=== PATIENT | male | born 2000 ===

== ENCOUNTER 2024-11-28 20:37 | Emergency (ER) | payer SELFPAY ==
[2024-11-28] VITALS (7 sets, daily range): BP systolic 143–171; BP diastolic 80–107; PULSE 81–100; RESP 16–18; TEMP 36.7–36.9; O2SAT 92–996; BMI 35.4
--- NOTE | 2024-11-28 21:12 | EDNOTE_ITS ---
ED General RME/HPI General Chief complaint: Syncope / Near Syncope Stated complaint: ANXIETY Time Seen by Provider: 11/28/24 21:04 Arrival date/time: 11/28/24 20:37 CC: Passed out . Patient presents to the ER via EMS with police escort in shackles coming from the intermediate where he was sitting on the lower bunk states he has had a bad day that was stressful . Patient is dramatic rolling his eyes and states that he does not recall the event denies any street drugs or alcohol. Vital signs are stable. The patient is refusing urine and blood testing. He is awake alert and oriented. Related Data Allergies Allergy/AdvReac Type Severity Reaction Status Date / Time No Known Allergies Allergy Verified 11/28/24 21:11 Review of Systems Review of Systems Narrative Review of Systems: GEN: No fever, no chills, no weight loss EYES: No discharge, no visual changes, no pain HEENT: No ear pain, no congestion, no sore throat PULM: No shortness of breath, no cough, no congestion CV: No chest pain, no dyspnea on exertion, no palpitations GI: No nausea, no vomiting, no diarrhea, no pain, no constipation : No frequency, no urgency, no dysuria MUSC/SKEL: No joint pain, no back pain SKIN: No rash PSYCH: No hallucinations, no depression HEME/LYMPH: No easy bleeding or bruising tendencies NEURO: No weakness, no headache ED Exam Narrative Physical exam: [General: Not in any acute distress, dramatic Head normocephalic HEENT: Pupils are PERRLA EOMs are intact mouth pink dry membranes uvula is midline swallow symmetrical phonation is normal within acceptable limits Neck is supple nontender Chest equal chest rise nontender to palpation Respiratory: Clear to auscultation no wheezes crackles or rubs CV: Rate rhythm is regular no murmurs rubs or clicks Abdomen is distended secondary to body habitus soft nontender no masses positive bowel sounds all 4 quadrants Back: No CVA tenderness no spinous process tenderness from cervical spine thoracic and lumbar spine Skin: Intact no petechiae rash induration ulceration or crepitus Extremities: Moving all extremity against resistance cap refill less than 2 seconds neurosensory intact Neuro: Awake alert oriented x3 Glascow coma 15 no focal deficits] Course Quality Measures none Orders Category Date Time Status Orthostatic Vitals NOW Care 11/28/24 21:11 Active Vital Signs Vital signs: Vital Signs Temperature 98.4 F 11/28/24 20:42 Pulse Rate 100 11/28/24 20:42 Respiratory Rate 17 11/28/24 20:42 Blood Pressure 151/92 H 11/28/24 20:42 Pulse Oximetry (%) 92 L 11/28/24 20:42 Oxygen Delivery Method Room Air 11/28/24 20:42 Discharge Plan Plan Patient Disposition: HOME (Self Care) Patient condition on transfer: Stable Problem List Clinical Impression: Syncope, Medical clearance for incarceration Patient/Caregiver Discharge Instructions Print Language: Belgian Stand Alone Forms: [employer] Award Info., Patient Portal Info Letter PA/DYLON Supervising Physician PA/DYLON Supervising Physician: Trevon Call ENP [facility] Clinical Information Provided by EMS and law enforcement Medical Records Reviewed [facility] and EMS Meds/Rx Considered, not Ordered None Labs/Rad/Tests considered, not Ordered None Describe details: Patient refused lab draw and urine test Chronic Illness/Social Conditions which may negatively complicate care or outcome(s)-explain: None or not applicable EKG EKG not done Lab Interpretation Labs: none Imaging Imaging interpretation: none Provider imaging interpretation(s): Patient is awake alert oriented no focal deficit with unremarkable orthostatic vital signs. At this time I am comfortable discharging this patient back to intermediate. Diagnosis Differential diagnosis: Syncope somatizations stress reaction Dispositon Disposition: Discharge Home
--- NOTE | 2024-11-28 21:28 | PC.NURSE ---
PT refusing all labs and all other treatment.
--- NOTE | 2024-11-28 22:00 | PC.NURSE ---
pt A&O x 4. GCS 15. pt refused ekg, all labs. pt appears in no distress.
== END 2024-11-28 22:20 ==
LOC: SERX 22:08
PROVIDERS: Emergency Provider Emergency Medicine
DX: R55 Syncope and collapse (principal)
CPT/HCPCS: 99284